=== PATIENT | female | born 1970 | race Caucasian/White ===

== ENCOUNTER 2019-11-02 10:32 | Emergency (ER) | payer MEDICAID ==
[~2019-11-02] VITALS: Ht 162.6 cm; Wt 90.0 kg
[~2019-11-02 10:32] MED LIST: GLIP5TAB12; GLUCO8
[2019-11-02] MEDS ORDERED: SODIUM CHLORIDE 0.9% 1,000 ML IV ONE (11:15)
[2019-11-02] MEDS ORDERED: ONDANSETRON HCL 4MG/2ML INJ IV ONE (11:15)
[2019-11-02] MEDS ORDERED: MORPHINE SULFATE 4 MG/ML CPJ (NOT FOR IM USE) IV ONE (11:15)
[2019-11-02 11:21] LABS: CHLORIDE 106 mEq/L (98-107)
[2019-11-02 11:23] LABS: BASOPHILS % 0.5 % (0.0-2.0); EOSINOPHILS % 1.8 % (0.0-5.0); HEMATOCRIT. 37.9 % (36.0-48.0); HEMOGLOBIN. 12.9 g/dL (12.0-16.0); LYMPHOCYTES % 20.4 % (20.0-50.0); MEAN CORPUSCULAR HEMOGLOBIN 29.3 pg (28.0-32.0); MEAN CORPUSCULAR VOLUME 86.4 fL (81.0-99.0); MEAN PLATELET VOLUME 8.3 fl (7.4-10.4); MONOCYTES % 4.1 % (2.0-8.0); NEUTROPHILS % 73.2 % (40.0-76.0); PLATELET 316 x1000/uL (130-400); RED BLOOD CELL COUNT 4.39 mill/uL (4.2-5.4); RED CELL DISTRIBUTION WIDTH 13.3 % (11.6-14.6)
[2019-11-02 11:26] LABS: CLARITY URINE CLEAR (CLEAR); COLOR URINE YELLOW (YELLOW); KETONES URINE NEGATIVE (NEGATIVE); LEUKOCYTE ESTERASE URINE TRACE (NEGATIVE); NITRITE URINE NEGATIVE (NEGATIVE); OCCULT BLOOD URINE NEGATIVE (NEGATIVE); PROTEIN URINE NEGATIVE (NEGATIVE); PROTHROMBIN TIME 10.2 sec (9.6-11.0); SPECIFIC GRAVITY URINE 1.002 (1.005-1.030); UROBILINOGEN URINE 0.2 E.U./dL (0.2-1.0)
[2019-11-02 15:47] VITALS: BP 160/73
== END 2019-11-02 15:54 | disposition home or self-care (01) ==
LOC: ER 10:47
DX: K80.20 Calculus of gallbladder without cholecystitis without obstruction (principal); K80.50 Calculus of bile duct without cholangitis or cholecystitis without obstruction; E11.9 Type 2 diabetes mellitus without complications; E78.00 Pure hypercholesterolemia, unspecified; I10 Essential (primary) hypertension
CPT/HCPCS: 36415; 76705; 80053; 81003; 83690; 85025; 85610; 96361; 96374; 96375; 99285; J2270; J2405; J7030

== ENCOUNTER 2022-09-28 23:09 | Emergency (ER) | payer MEDICAID, OTHER ==
[~2022-09-28] VITALS: Ht 157.5 cm; Wt 127.0 kg
[2022-09-28 23:48] LABS: BASOPHILS % 0.5 % (0.0-2.0); HEMOGLOBIN. 11.3 g/dL (12.0-16.0); LYMPHOCYTES % 27.2 % (20.0-50.0); MEAN CORPUSCULAR HEMOGLOBIN 28.7 pg (28.0-32.0); MEAN CORPUSCULAR VOLUME 86.6 fL (81.0-99.0); MEAN PLATELET VOLUME 8.6 fl (7.4-10.4); MONOCYTES % 5.9 % (2.0-8.0); NEUTROPHILS % 63.4 % (40.0-76.0); PLATELET 263 x1000/uL (130-400); RED BLOOD CELL COUNT 3.93 mill/uL (4.2-5.4); RED CELL DISTRIBUTION WIDTH 13.2 % (11.6-14.6)
[2022-09-28 23:57] LABS: CHLORIDE 102 mEq/L (98-107)
[2022-09-29] MEDS ORDERED: SODIUM CHLORIDE 0.9% 1,000 ML IV ONE (01:00)
[2022-09-29] MEDS ORDERED: ONDANSETRON HCL 4MG/2ML INJ IV NR (01:00)
[2022-09-29] MEDS ORDERED: ONDA4TAB50 MT (02:12)
[2022-09-29] MEDS ORDERED: IBUP-2029 MT (02:12)
[2022-09-29 02:39] VITALS: BP 140/89
== END 2022-09-29 02:55 | disposition home or self-care (01) ==
LOC: ER 23:09
DX: R11.2 Nausea with vomiting, unspecified (principal); M25.561 Pain in right knee; M25.551 Pain in right hip; E11.9 Type 2 diabetes mellitus without complications; I10 Essential (primary) hypertension
CPT/HCPCS: 36415; 72170; 73560; 80053; 81025; 83690; 85025; 96374; 99284; J2405

== ENCOUNTER 2022-10-25 17:14 | Emergency (ER) | payer OTHER ==
[~2022-10-25] VITALS: Ht 152.4 cm; Wt 132.0 kg
[~2022-10-25 17:14] MED LIST changes: +IBUP-2029 MT; +ONDA4TAB50 MT
[2022-10-25 17:32] VITALS: BP 170/95; PULSE 78; RESP 18; TEMP 99.3
[2022-10-25] MEDS ORDERED: IBUP-2029 MT (20:06)
[2022-10-25] MEDS ORDERED: AMOX-494 MT (20:06)
== END 2022-10-25 20:35 | disposition home or self-care (01) ==
LOC: ER 17:14
DX: H66.92 Otitis media, unspecified, left ear (principal)
CPT/HCPCS: 99283